=== PATIENT | male | born 1995 | race Caucasian/White ===

== ENCOUNTER 2016-08-01 17:45 | Emergency (ER) | payer OTHER ==
[2016-08-01] MEDS ORDERED: Azithromycin 100 MG/5 ML Susp 15 ML Bottle PO ONE (19:13)
--- NOTE | 2016-08-01 19:15 | EDM.PDOC ---
ED HPI GENERAL MEDICAL PROBLEM - General Chief Complaint: Genitourinary Problem Stated Complaint: BURING WHEN URINATE Time Seen by Provider: 08/01/16 17:45 Source of Information: Reports: Patient History Limitations: Reports: No limitations - History of Present Illness INITIAL COMMENTS - FREE TEXT/NARRATIVE: History of present illness: [20-year-old male comes in complaining of burning on urination states he thinks he is UTI. Patient indicates he has a UTI before he also acknowledges he has had an STI before and this feels more like the infection from his bladder and not an STI] Review of systems: As per history of present illness and below otherwise all systems reviewed and negative. Past medical history: As per history of present illness and as reviewed below otherwise noncontributory. Surgical history: As per history of present illness and as reviewed below otherwise noncontributory. Social history: No reported history of drug or alcohol abuse. Family history: As per history of present illness and as reviewed below otherwise noncontributory. Physical exam: HEENT: Atraumatic, normocephalic, pupils reactive, negative for conjunctival pallor or scleral icterus, mucous membranes moist, throat clear, neck supple, nontender, trachea midline. Lungs: Clear to auscultation, breath sounds equal bilaterally, chest nontender. Heart: S1S2, regular, negative for clicks, rubs, or JVD. Abdomen: Soft, nondistended, nontender. Negative for masses or hepatosplenomegaly. Negative for costovertebral tenderness. Pelvis: Stable nontender. Genitourinary: Deferred. Rectal: Deferred. Extremities: Atraumatic, negative for cords or calf pain. Neurovascular unremarkable. Neuro: Awake, alert, oriented. Cranial nerves II through XII unremarkable. Cerebellum unremarkable. Motor and sensory unremarkable throughout. Exam nonfocal. Global assessment is benign save for the subjective complaint as noted in history of present illness Diagnostics: [UA] Therapeutics: [] Impression: [Burning urination] Plan: 2 g of azithromycin here for broad coverage] Definitive disposition and diagnosis as appropriate pending reevaluation and review of above. - Related Data Allergies Allergy/AdvReac Type Severity Reaction Status Date / Time coconut Allergy Swelling Uncoded 08/01/16 17:51 Home Meds: Home Meds . [No Known Home Meds] 08/01/16 [History] Past Medical History HEENT History: Reports: None Cardiovascular History: Reports: None Respiratory History: Reports: None Gastrointestinal History: Reports: None Genitourinary History: Reports: None Musculoskeletal History: Reports: None Neurological History: Reports: Migraines Psychiatric History: Reports: Anxiety Endocrine/Metabolic History: Reports: None Hematologic History: Reports: None Immunologic History: Reports: None Oncologic (Cancer) History: Reports: None Dermatologic History: Reports: None - Infectious Disease History Infectious Disease History: Reports: None - Past Surgical History Head Surgeries/Procedures: Reports: None HEENT Surgical History: Reports: None Cardiovascular Surgical History: Reports: None Respiratory Surgical History: Reports: None GI Surgical History: Reports: None Male Surgical History: Reports: None Endocrine Surgical History: Reports: None Musculoskeletal Surgical History: Reports: None Dermatological Surgical History: Reports: None Social & Family History - Family History Family Medical History: Noncontributory - Tobacco Use Smoking Status *Q: Current Some Day Smoker Years of Tobacco use: 4 Packs/Tins Daily: 0.2 Second Hand Smoke Exposure: No - Caffeine Use Caffeine Use: Reports: None - Recreational Drug Use Recreational Drug Use: Yes Drug Use in Last 12 Months: Yes Recreational Drug Type: Reports: Marijuana/Hashish Recreational Drug Use Frequency: Daily ED ROS GENERAL - Review of Systems Review Of Systems: See Below (See history of present illness) ED EXAM, GENERAL - Physical Exam Exam: See Below (See history of present illness) Course - Vital Signs Last Recorded V/S: Last Vital Signs Temp 36.6 C 08/01/16 17:48 Pulse 49 L 08/01/16 17:48 Resp 16 08/01/16 17:48 BP 133/61 08/01/16 17:48 Pulse Ox 99 08/01/16 17:48 - Orders/Labs/Meds Orders: Active Orders 24 hr Category Date Time Status CHLAMYDIA TRACHOMATIS/GC AMPLF Stat Lab 08/01/16 17:51 Received Labs: Laboratory Tests 08/01/16 Range/Units 17:54 Urine Color YELLOW Urine Appearance CLEAR Urine pH 6.0 (5.0-8.0) Ur Specific [place] <= 1.005 (1.001-1.035) Urine Protein NEGATIVE (NEGATIVE) mg/dL Urine Glucose (UA) NEGATIVE (NEGATIVE) mg/dL Urine Ketones NEGATIVE (NEGATIVE) mg/dL Urine Occult Blood NEGATIVE (NEGATIVE) Urine Nitrite NEGATIVE (NEGATIVE) Urine Bilirubin NEGATIVE (NEGATIVE) Urine Urobilinogen 0.2 (<2.0) EU/dL Ur Leukocyte Esterase NEGATIVE (NEGATIVE) Urine RBC 0-1 (0-2/HPF) Urine WBC 0-1 (0-5/HPF) Ur Epithelial Cells RARE (NONE-FEW) Departure - Departure Time of Disposition: 19:14 Disposition: Home, Self-Care 01 Condition: good Clinical Impression: Burning with urination Forms: ED Department Discharge Additional Instructions: The following information is given to patients seen in the emergency department who are being discharged to home. This information is to outline your options for follow-up care. We provide all patients seen in our emergency department with a follow-up referral. The need for follow-up, as well as the timing and circumstances, are variable depending upon the specifics of your emergency department visit. If you don't have a primary care physician on staff, we will provide you with a referral. We always advise you to contact your personal physician following an emergency department visit to inform them of the circumstance of the visit and for follow-up with them and/or the need for any referrals to a consulting specialist. The emergency department will also refer you to a specialist when appropriate. This referral assures that you have the opportunity for follow-up care with a specialist. All of these measure are taken in an effort to provide you with optimal care, which includes your follow-up. Under all circumstances we always encourage you to contact your private physician who remains a resource for coordinating your care. When calling for follow-up care, please make the office aware that this follow-up is from your recent emergency room visit. If for any reason you are refused follow-up, please contact the [facility] Emergency Department at and asked to speak to the emergency department charge nurse. Followup with PCP in one to 2 day Return to ED as needed as discussed - My Orders Last 24 Hours: My Active Orders 08/01/16 17:51 CHLAMYDIA TRACHOMATIS/GC AMPLF Stat - Assessment/Plan Last 24 Hours: My Active Orders 08/01/16 17:51 CHLAMYDIA TRACHOMATIS/GC AMPLF Stat
[2016-08-01] MEDS ORDERED: Azithromycin 250 MG Tab PO STA (19:20)
[2016-08-01 20:30] VITALS: BP 135/65
== END 2016-08-01 19:31 | disposition home or self-care (01) ==
LOC: MW.ED 17:45
DX: R30.0 Dysuria (principal); F41.9 Anxiety disorder, unspecified; F17.210 Nicotine dependence, cigarettes, uncomplicated; Z91.018 Allergy to other foods
CPT/HCPCS: 81001; 87491; 87591; 99283; A9270

== ENCOUNTER 2016-08-01 22:15 | Emergency (ER) | payer OTHER, SELFPAY ==
[2016-08-01] MEDS ORDERED: Sodium Chloride 0.9% 1,000 ML IV ONE (22:33)
[2016-08-01] MEDS ORDERED: Ondansetron 4 MG/2 ML SDV IVPUSH ONE (22:33)
--- NOTE | 2016-08-01 22:48 | EDM.PDOC ---
ED HPI GI/ABDOMINAL - General Chief Complaint: Gastrointestinal Problem Stated Complaint: NAUSEA Time Seen by Provider: 08/01/16 22:23 Source of Information: Reports: Patient History Limitations: Reports: No limitations - History of Present Illness INITIAL COMMENTS - FREE TEXT/NARRATIVE: History of present illness: [20-year-old male returns to the ED secondary to 7 bouts of emesis. Patient now indicates that in fact he's had diarrhea for several days as well as nausea vomiting and that he had told registration is when he came in. I reminded patient that I had seen him myself and in fact all he had discussed was his burning on urination, his negative UA and concerned that it could be an STI and treatment the he agreed to take. Patient indicated that he understood that these were 2 separate issues but that he also comes thinking that he had some other illness to 2 this several days of nausea vomiting diarrhea the he insists that he has.] Review of systems: As per history of present illness and below otherwise all systems reviewed and negative. Past medical history: As per history of present illness and as reviewed below otherwise noncontributory. Surgical history: As per history of present illness and as reviewed below otherwise noncontributory. Social history: No reported history of drug or alcohol abuse. Family history: As per history of present illness and as reviewed below otherwise noncontributory. Physical exam: HEENT: Atraumatic, normocephalic, pupils reactive, negative for conjunctival pallor or scleral icterus, mucous membranes moist, throat clear, neck supple, nontender, trachea midline. Lungs: Clear to auscultation, breath sounds equal bilaterally, chest nontender. Heart: S1S2, regular, negative for clicks, rubs, or JVD. Abdomen: Soft, nondistended, nontender. Negative for masses or hepatosplenomegaly. Negative for costovertebral tenderness. Pelvis: Stable nontender. Genitourinary: Deferred. Rectal: Deferred. Extremities: Atraumatic, negative for cords or calf pain. Neurovascular unremarkable. Neuro: Awake, alert, oriented. Cranial nerves II through XII unremarkable. Cerebellum unremarkable. Motor and sensory unremarkable throughout. Exam nonfocal. Patient indicates is abdomen is only sore from the continuous vomiting. Patient without any nausea vomiting or diarrhea apparent during ER stay of one and a half hours. Patient indicates that he feels significantly better like "night and day". Patient instructed to have clear liquids for minimal for one day but 3 would be optimum, and slowly advanced as tolerated the insertion the gastric acid observing foods like similar to the BRAT diet Diagnostics: [] Therapeutics: [IV fluid, Zofran, Rocephin IV push] Impression: [Viral gastroenteritis] Plan: [Zofran followup with primary care] Definitive disposition and diagnosis as appropriate pending reevaluation and review of above. - Related Data Allergies/ADRs: Allergies Allergy/AdvReac Type Severity Reaction Status Date / Time coconut Allergy Swelling Uncoded 08/01/16 17:51 Home Meds: Home Meds . [No Known Home Meds] 08/01/16 [History] Past Medical History - Past Health History Medical/Surgical History: Denies Medical/Surgical History HEENT History: Reports: None Cardiovascular History: Reports: None Respiratory History: Reports: None Gastrointestinal History: Reports: None Genitourinary History: Reports: None Musculoskeletal History: Reports: None Neurological History: Reports: Migraines Psychiatric History: Reports: Anxiety Endocrine/Metabolic History: Reports: None Hematologic History: Reports: None Immunologic History: Reports: None Oncologic (Cancer) History: Reports: None Dermatologic History: Reports: None - Infectious Disease History Infectious Disease History: Reports: None - Past Surgical History Head Surgeries/Procedures: Reports: None HEENT Surgical History: Reports: None Cardiovascular Surgical History: Reports: None Respiratory Surgical History: Reports: None GI Surgical History: Reports: None Male Surgical History: Reports: None Endocrine Surgical History: Reports: None Musculoskeletal Surgical History: Reports: None Dermatological Surgical History: Reports: None Social & Family History - Family History Family Medical History: Noncontributory - Tobacco Use Smoking Status *Q: Never Smoker Years of Tobacco use: 4 Packs/Tins Daily: 0.2 Second Hand Smoke Exposure: No - Caffeine Use Caffeine Use: Reports: None - Recreational Drug Use Recreational Drug Use: Yes Drug Use in Last 12 Months: Yes Recreational Drug Type: Reports: Marijuana/Hashish Recreational Drug Use Frequency: Daily ED ROS GENERAL - Review of Systems Review Of Systems: See Below (History of present illness) ED EXAM, GI/ABD - Physical Exam Exam: See Below (History of present illness) Course - Vital Signs Last Recorded V/S: Last Vital Signs Temp 36.5 C 08/01/16 23:09 Pulse 55 L 08/01/16 23:09 Resp 18 08/01/16 23:09 BP 119/56 L 08/01/16 23:09 Pulse Ox 98 08/01/16 23:09 - Orders/Labs/Meds Orders: Active Orders 24 hr Category Date Time Status cefTRIAXone [Rocephin] Med 08/01/16 23:45 Ordered 250 mg IVPUSH Q24H Medication Orders Ceftriaxone Sodium (Rocephin) 250 mg IVPUSH Q24H ROLANDO Labs: Laboratory Tests 08/01/16 08/01/16 Range/Units 22:50 22:50 WBC 11.06 H (4.0-11.0) K/uL RBC 4.85 (4.50-5.90) M/uL Hgb 14.9 (13.0-17.0) g/dL Hct 44.7 (38.0-50.0) % MCV 92.2 (80.0-98.0) fL MCH 30.7 (27.0-32.0) pg MCHC 33.3 (31.0-37.0) g/dL RDW Std Deviation 43.0 (28.0-62.0) fl RDW Coeff of Michael 13 (11.0-15.0) % Plt Count 188 (150-400) K/uL MPV 11.60 (7.40-12.00) fL Neut % (Auto) 71.5 (48.0-80.0) % Lymph % (Auto) 18.4 (16.0-40.0) % [place] % (Auto) 8.8 (0.0-15.0) % Eos % (Auto) 1.1 (0.0-7.0) % Baso % (Auto) 0.2 (0.0-1.5) % Neut # (Auto) 7.9 H (1.4-5.7) K/uL Lymph # (Auto) 2.0 (0.6-2.4) K/uL [place] # (Auto) 1.0 H (0.0-0.8) K/uL Eos # (Auto) 0.1 (0.0-0.7) K/uL Baso # (Auto) 0.0 (0.0-0.1) K/uL Nucleated RBC % 0.0 /100WBC Nucleated RBCs # 0 K/uL Sodium 140 (136-146) mmol/L Potassium 3.6 (3.5-5.1) mmol/L Chloride 106 (98-110) mmol/L Carbon Dioxide 22 (21-31) mmol/L BUN 13 (6.0-23.0) mg/dL Creatinine 1.0 (0.6-1.5) mg/dL Est Cr Clr Drug Dosing 116.69 mL/min Estimated GFR (MDRD) > 60.0 ml/min Glucose 100 (60-110) mg/dL Calcium 10.2 (8.8-10.8) mg/dL Total Bilirubin 1.3 (0.1-1.5) mg/dL AST 26 (5-40) IU/L ALT 25 (8-54) IU/L Alkaline Phosphatase 73 (40-150) Total Protein 7.8 (6.0-8.0) g/dL Albumin 4.9 (3.5-5.0) g/dL Globulin 2.9 (2.0-3.5) g/dL Albumin/Globulin Ratio 1.7 (1.3-2.8) Meds: Medications Generic Name Dose Route Start Last Admin Trade Name Freq PRN Reason Stop Dose Admin Ceftriaxone Sodium 250 mg 08/01/16 23:45 Rocephin IVPUSH Q24H ROLANDO Discontinued Medications Generic Name Dose Route Start Last Admin Trade Name Freq PRN Reason Stop Dose Admin Sodium Chloride 1,000 mls @ 999 mls/hr 08/01/16 22:33 08/01/16 23:04 Normal Saline IV 08/01/16 23:33 999 mls/hr STAT ONE Administration Ondansetron HCl 8 mg 08/01/16 22:33 08/01/16 23:04 Zofran IVPUSH 08/01/16 22:34 8 mg ONETIME ONE Administration Departure - Departure Time of Disposition: 23:42 Disposition: Home, Self-Care 01 Condition: good Clinical Impression: Gastroenteritis Instructions: Dehydration, Adult, [id number], Viral Gastroenteritis, Adult, [id number], Nausea and Vomiting, Adult, Nyiz-ca-Cpji, Diarrhea, Adult, Easy-to -Read, Food Poisoning, [id number] Forms: ED Department Discharge Additional Instructions: The following information is given to patients seen in the emergency department who are being discharged to home. This information is to outline your options for follow-up care. We provide all patients seen in our emergency department with a follow-up referral. The need for follow-up, as well as the timing and circumstances, are variable depending upon the specifics of your emergency department visit. If you don't have a primary care physician on staff, we will provide you with a referral. We always advise you to contact your personal physician following an emergency department visit to inform them of the circumstance of the visit and for follow-up with them and/or the need for any referrals to a consulting specialist. The emergency department will also refer you to a specialist when appropriate. This referral assures that you have the opportunity for follow-up care with a specialist. All of these measure are taken in an effort to provide you with optimal care, which includes your follow-up. Under all circumstances we always encourage you to contact your private physician who remains a resource for coordinating your care. When calling for follow-up care, please make the office aware that this follow-up is from your recent emergency room visit. If for any reason you are refused follow-up, please contact the [facility] Emergency Department at and asked to speak to the emergency department charge nurse. Take medication as draped Followup with PCP 1-2 days Follow diet as discussed Return to ED as needed as discussed - My Orders Last 24 Hours: My Active Orders 08/01/16 23:45 cefTRIAXone [Rocephin] 250 mg IVPUSH Q24H - Assessment/Plan Last 24 Hours: My Active Orders 08/01/16 23:45 cefTRIAXone [Rocephin] 250 mg IVPUSH Q24H
[2016-08-01 23:22] LABS: CHLORIDE,CL 106 mmol/L (98-110); SODIUM,NA 140 mmol/L (136-146)
[2016-08-01] MEDS ORDERED: cefTRIAXone 1,000 MG VIAL IVPUSH SCH (23:45)
[2016-08-02] MEDS ORDERED: Sodium Chloride 0.9% 1,000 ML IV ONE ×2 (00:02→00:34)
[2016-08-02] MEDS ORDERED: Prochlorperazine 10 MG/2 ML SDV IVPUSH ONE (00:02)
[2016-08-02] MEDS ORDERED: Morphine 10 MG/ML Syringe IV ONE (00:19)
[2016-08-02] MEDS ORDERED: Iopamidol 755 Mg/ML 100 ML Bottle IVPUSH STA (00:49)
[2016-08-02 01:48] VITALS: BP 123/62
--- NOTE | 2016-08-02 14:15 | CT ---
EXAM DATE: 08/01/16 PATIENT'S AGE: 20 Patient: YOLA XIONG Facility: [place], [place] Site . Site : 1995 Study: CT Abdomen/Pelvis [id number] 1:18:26 AM Ordering Physician: Doctor Santoro Final Report: HISTORY: Right lower quadrant pain and vomiting. TECHNIQUE: The abdomen and pelvis was scanned using helical technique at 3 mm intervals without IV contrast. Sagittal and coronal reconstructions were performed. FINDINGS: Lung bases: No infiltrate. Liver and gallbladder: The liver parenchyma is homogeneous. There is trace periportal edema, a nonspecific finding. No calcified gallstones. Spleen, pancreas and adrenal glands: Unremarkable. Kidneys and bladder: Symmetric nephrograms. No hydronephrosis. The bladder is within normal limits. Retroperitoneum and lymph nodes: Abdominal aorta is normal in caliber. No pathologic periaortic or pelvic sidewall adenopathy is seen. GI tract: Stomach is decompressed. There is some fluid seen in nondilated small bowel loops. No transition point is identified. A normal appendix is seen on axial images 100-108. There is no surrounding inflammatory change. There is liquid stool seen in the ascending and transverse colon. There is no free air in the abdomen. There is trace free fluid the pelvis. Pelvic organs: Prostate unremarkable. Osseous structures: Schmorl`s node superior endplate L3. IMPRESSION: 1. Trace periportal edema, a nonspecific finding. 2. Normal appendix. 3. There is some fluid seen in nondilated small bowel loops with liquid stool in the ascending and transverse colon suggesting enteritis. 4. Trace free fluid in the pelvis. Dictated by Neva Thompson MD @ 08/02/2016 1:31:05 AM Dictated by: Neva Thompson MD @ 08/02/2016 01:32:04 (Electronic Signature) Report Signed by Proxy. [facility]ITALMichael
== END 2016-08-02 01:55 | disposition home or self-care (01) ==
LOC: MW.ED 22:15
DX: A08.4 Viral intestinal infection, unspecified (principal); R11.2 Nausea with vomiting, unspecified; F41.9 Anxiety disorder, unspecified; R30.0 Dysuria; F17.210 Nicotine dependence, cigarettes, uncomplicated; Z91.018 Allergy to other foods
CPT/HCPCS: 36415; 74177; 80053; 81001; 85025; 87491; 87591; 96361; 96374; 96375; 99283; 99284; A9270; J0780; J2270; J2405; J7040; Q9967

== ENCOUNTER → 2016-08-03 | Outpatient (CLI) | payer OTHER, SELFPAY | LOC: MW.CHRC 14:42 | PROVIDERS: ATTEND Family Medicine | DX: R19.7 Diarrhea, unspecified (principal); R30.0 Dysuria | CPT/HCPCS: 81001 ==

== ENCOUNTER → 2016-08-04 | Outpatient (CLI) | payer OTHER, SELFPAY | LOC: MW.CHRC 10:05 | PROVIDERS: ATTEND Family Medicine | DX: R19.7 Diarrhea, unspecified (principal) | CPT/HCPCS: 87046; 87324; 87899 ==

== ENCOUNTER 2017-02-06 15:44 | Emergency (ER) | payer OTHER, SELFPAY ==
[2017-02-06 16:11] VITALS: BP 130/63
[2017-02-06] MEDS ORDERED: Ondansetron 4 MG/2 ML SDV IVPUSH ONE (16:26)
[2017-02-06] MEDS ORDERED: Ketorolac 30 MG/ML SDV IVPUSH ONE (16:29)
--- NOTE | 2017-02-06 16:30 | EDM.PDOC ---
ED HPI GENERAL MEDICAL PROBLEM - General Chief Complaint: Gastrointestinal Problem Stated Complaint: VOMITING Time Seen by Provider: 02/06/17 16:27 Source of Information: Reports: Patient History Limitations: Reports: No Limitations - History of Present Illness INITIAL COMMENTS - FREE TEXT/NARRATIVE: HISTORY AND PHYSICAL: History of present illness: [Patient comes to the emergency room complaining of nausea and vomiting since 5 AM this morning. He felt warm and feverish all day. He is unable to keep down any food or fluids due to his nausea. Feels that the nausea has slightly improved since onset this morning. Has no blood in his stools or emesis. No difficulty urinating or back pain. No abdominal pain. Generalized achiness throughout his entire body. Mild headache. He has taken medications for his symptoms but he has vomited them all up. No ill contacts that he is aware of. He felt well last night, and did not drink alcohol or use drugs. He does not smoke cigarettes. He has a mild cough and chest congestion as well as a runny nose for the past several days. No pain in his chest shortness of breath or difficulty breathing. He has not had any wheezing or abnormal sounds with breathing. He has no other complaints or concerns at this time.] Review of systems: As per history of present illness and below otherwise all systems reviewed and negative. Past medical history: As per history of present illness and as reviewed below otherwise noncontributory. Surgical history: As per history of present illness and as reviewed below otherwise noncontributory. Social history: No reported history of drug or alcohol abuse. Family history: As per history of present illness and as reviewed below otherwise noncontributory. Physical exam: Gen. well-developed well-nourished male in no acute distress. He appears nontoxic and is in no distress. HEENT: Atraumatic, normocephalic. Right TM is moderately erythematous and bulging. Left TM is unremarkable. Oral mucous members are pink and moist. No tonsillar swelling erythema or exudate. Neck supple. no lymphadenopathy. Lungs: Clear to auscultation, breath sounds equal bilaterally. No wheezing crackles or rales. Heart: S1S2, regular rate and rhythm. Abdomen: Bowel sounds are normoactive throughout. Abdomen is soft nondistended nontender. No masses guarding or rebound. Is mildly tender with palpation over his lower back but no specific flank tenderness. Pelvis: Stable nontender. Genitourinary: Deferred. Rectal: Deferred. Extremities: Atraumatic, negative for cords or calf pain. No cyanosis or edema. Neurovascular unremarkable. Neuro: Awake, alert, oriented. Motor and sensory unremarkable throughout. Exam nonfocal. Diagnostics: [CBC, CMP, UA, amylase, lipase] Therapeutics: [Normal saline 1 L, Zofran 4 mg IV, Toradol 30 mg IV] Impression: [Nausea and vomiting] Plan: [Patient's pain improves and nausea resolves following medications. White count is mildly elevated at 14,000. Discussed with him that his symptoms appear to be from a viral illness. Recommend avoiding dairy, push fluids and increase diet as tolerated. Tylenol or ibuprofen as needed for discomfort. He is in agreement with today's plan. All questions are answered and concerns are addressed.] Definitive disposition and diagnosis as appropriate pending reevaluation and review of above. - Related Data Allergies Allergy/AdvReac Type Severity Reaction Status Date / Time coconut Allergy Swelling Uncoded 02/06/17 16:10 Home Meds: Home Meds . [No Known Home Meds] 08/01/16 [History] Past Medical History - Past Health History Medical/Surgical History: Denies Medical/Surgical History HEENT History: Reports: None Cardiovascular History: Reports: None Respiratory History: Reports: None Gastrointestinal History: Reports: None Genitourinary History: Reports: None Musculoskeletal History: Reports: None Neurological History: Reports: Migraines Psychiatric History: Reports: Anxiety Endocrine/Metabolic History: Reports: None Hematologic History: Reports: None Immunologic History: Reports: None Oncologic (Cancer) History: Reports: None Dermatologic History: Reports: None - Infectious Disease History Infectious Disease History: Reports: Chicken Pox - Past Surgical History Head Surgeries/Procedures: Reports: None HEENT Surgical History: Reports: None Cardiovascular Surgical History: Reports: None Respiratory Surgical History: Reports: None GI Surgical History: Reports: None Male Surgical History: Reports: Other (See Below) Other Male Surgeries/Procedures: orchiectomy Endocrine Surgical History: Reports: None Musculoskeletal Surgical History: Reports: None Dermatological Surgical History: Reports: None Social & Family History - Family History Family Medical History: Noncontributory - Tobacco Use Smoking Status *Q: Never Smoker Years of Tobacco use: 4 Packs/Tins Daily: 0.2 Second Hand Smoke Exposure: No - Caffeine Use Caffeine Use: Reports: None - Recreational Drug Use Recreational Drug Use: Yes Drug Use in Last 12 Months: Yes Recreational Drug Type: Reports: Marijuana/Hashish Recreational Drug Use Frequency: Socially ED ROS GENERAL - Review of Systems Review Of Systems: ROS reveals no pertinent complaints other than HPI. ED EXAM, GI/ABD - Physical Exam Exam: See Below Course - Vital Signs Last Recorded V/S: Last Vital Signs Temp 99.0 F 02/06/17 16:09 Pulse 95 02/06/17 16:09 Resp 16 02/06/17 16:09 BP 130/63 02/06/17 16:09 Pulse Ox 100 02/06/17 16:09 - Orders/Labs/Meds Orders: Active Orders 24 hr Category Date Time Status UA W/MICROSCOPIC [URIN] Stat Lab 02/06/17 20:30 Results Labs: Laboratory Tests 02/06/17 02/06/17 02/06/17 Range/Units 16:33 16:33 20:30 WBC 14.22 H (4.0-11.0) K/uL RBC 5.18 (4.50-5.90) M/uL Hgb 15.7 (13.0-17.0) g/dL Hct 47.1 (38.0-50.0) % MCV 90.9 (80.0-98.0) fL MCH 30.3 (27.0-32.0) pg MCHC 33.3 (31.0-37.0) g/dL RDW Std Deviation 43.5 (28.0-62.0) fl RDW Coeff of Michael 13 (11.0-15.0) % Plt Count 169 (150-400) K/uL MPV 11.90 (7.40-12.00) fL Neut % (Auto) 87.9 H (48.0-80.0) % Lymph % (Auto) 2.5 L (16.0-40.0) % [place] % (Auto) 9.1 (0.0-15.0) % Eos % (Auto) 0.4 (0.0-7.0) % Baso % (Auto) 0.1 (0.0-1.5) % Neut # (Auto) 12.5 H (1.4-5.7) K/uL Lymph # (Auto) 0.4 L (0.6-2.4) K/uL [place] # (Auto) 1.3 H (0.0-0.8) K/uL Eos # (Auto) 0.1 (0.0-0.7) K/uL Baso # (Auto) 0.0 (0.0-0.1) K/uL Nucleated RBC % 0.0 /100WBC Nucleated RBCs # 0 K/uL Sodium 139 (136-146) mmol/L Potassium 4.2 (3.5-5.1) mmol/L Chloride 105 (98-110) mmol/L Carbon Dioxide 23 (21-31) mmol/L BUN 11 (6.0-23.0) mg/dL Creatinine 1.0 (0.6-1.5) mg/dL Est Cr Clr Drug Dosing 118.63 mL/min Estimated GFR (MDRD) > 60.0 ml/min Glucose 91 (60-110) mg/dL Calcium 9.9 (8.8-10.8) mg/dL Total Bilirubin 0.7 (0.1-1.5) mg/dL AST 28 (5-40) IU/L ALT 21 (8-54) IU/L Alkaline Phosphatase 88 (40-150) Total Protein 7.8 (6.0-8.0) g/dL Albumin 4.6 (3.5-5.0) g/dL Globulin 3.2 (2.0-3.5) g/dL Albumin/Globulin Ratio 1.4 (1.3-2.8) Amylase 55 (10-90) U/L Lipase 20 (7-80) U/L Urine Color YELLOW Urine Appearance CLEAR Urine pH 6.0 (5.0-8.0) Ur Specific [place] 1.025 (1.001-1.035) Urine Protein NEGATIVE (NEGATIVE) mg/dL Urine Glucose (UA) NEGATIVE (NEGATIVE) mg/dL Urine Ketones >=80 (NEGATIVE) mg/dL Urine Occult Blood NEGATIVE (NEGATIVE) Urine Nitrite NEGATIVE (NEGATIVE) Urine Bilirubin NEGATIVE (NEGATIVE) Urine Urobilinogen 0.2 (<2.0) EU/dL Ur Leukocyte Esterase NEGATIVE (NEGATIVE) Meds: Medications Discontinued Medications Generic Name Dose Route Start Last Admin Trade Name Freq PRN Reason Stop Dose Admin Sodium Chloride 1,000 mls @ 999 mls/hr 02/06/17 16:26 02/06/17 17:57 Normal Saline IV 02/06/17 17:26 999 mls/hr STAT ONE Administration Ketorolac Tromethamine 30 mg 02/06/17 16:29 02/06/17 17:05 Toradol IVPUSH 02/06/17 16:30 30 mg ONETIME ONE Administration Ondansetron HCl 4 mg 02/06/17 16:26 02/06/17 17:05 Zofran IVPUSH 02/06/17 16:27 4 mg ONETIME ONE Administration Departure - Departure Time of Disposition: 20:20 Disposition: Home, Self-Care 01 Condition: Good Clinical Impression: Vomiting Vomiting Qualifiers: Vomiting type: unspecified Vomiting Intractability: non-intractable Nausea presence: with nausea Qualified Code(s): R11.2 - Nausea with vomiting, unspecified - Discharge Information Referrals: Alex Ponce [Primary Care Provider] - Forms: ED Department Discharge Additional Instructions: The following information is given to patients seen in the emergency department who are being discharged to home. This information is to outline your options for follow-up care. We provide all patients seen in our emergency department with a follow-up referral. The need for follow-up, as well as the timing and circumstances, are variable depending upon the specifics of your emergency department visit. If you don't have a primary care physician on staff, we will provide you with a referral. We always advise you to contact your personal physician following an emergency department visit to inform them of the circumstance of the visit and for follow-up with them and/or the need for any referrals to a consulting specialist. The emergency department will also refer you to a specialist when appropriate. This referral assures that you have the opportunity for follow-up care with a specialist. All of these measure are taken in an effort to provide you with optimal care, which includes your follow-up. Under all circumstances we always encourage you to contact your private physician who remains a resource for coordinating your care. When calling for follow-up care, please make the office aware that this follow-up is from your recent emergency room visit. If for any reason you are refused follow-up, please contact the [facility] emergency department at and asked to speak to the emergency department charge nurse. [facility] [address] [place] [id number] Follow-up with your primary care provider at the clinic listed above in 2-3 days. Push fluids, get plenty of rest. Avoid dairy products until diarrhea free for 24 hrs., then gradually increase diet. Return to ER as needed as discussed. - My Orders Last 24 Hours: My Active Orders 02/06/17 20:30 UA W/MICROSCOPIC [URIN] Stat - Assessment/Plan Last 24 Hours: My Active Orders 02/06/17 20:30 UA W/MICROSCOPIC [URIN] Stat
[2017-02-06 17:05] LABS: CHLORIDE,CL 105 mmol/L (98-110); SODIUM,NA 139 mmol/L (136-146)
[2017-02-06] MEDS: Sodium Chloride 0.9% 1,000 ML IV ONE ×2 (17:05→17:57)
== END 2017-02-06 21:13 | disposition home or self-care (01) ==
LOC: MW.ED 15:44
DX: R11.2 Nausea with vomiting, unspecified (principal)
CPT/HCPCS: 36415; 80053; 81001; 82150; 83690; 85025; 87804; 96361; 96374; 96375; 99284; J1885; J2405; J7040; 99283

== ENCOUNTER 2018-09-24 15:12 | Emergency (ER) | payer OTHER ==
[2018-09-24 15:26] VITALS: BP 132/58
--- NOTE | 2018-09-24 15:37 | EDM.PDOC ---
ED HPI GENERAL MEDICAL PROBLEM - General Chief Complaint: ENT Problem Stated Complaint: TONSILS INFECTED Time Seen by Provider: 09/24/18 15:14 Source of Information: Reports: Patient History Limitations: Reports: No Limitations - History of Present Illness INITIAL COMMENTS - FREE TEXT/NARRATIVE: HISTORY AND PHYSICAL: History of present illness: Patient is a 23-year-old male presents to the ED today with concern of a sore throat 2-3 days. Patient states she started noticing some white spots on the left side of his tonsil and was concern for strep throat. Patient states he's had a mild headache along with his symptoms. Patient denies any health history or any other symptoms at this time. Patient denies fever, chills, chest pain, shortness of breath, or cough. Denies headache, neck stiff ness, change in vision, syncope, or near syncope. Denies nausea, vomiting, abdominal pain, diarrhea, constipation, or dysuria. Has not noted any blood in urine or stool. Patient has been eating and drinking appropriately. Review of systems: As per history of present illness and below otherwise all systems reviewed and negative. Past medical history: As per history of present illness and as reviewed below otherwise noncontributory. Surgical history: As per history of present illness and as reviewed below otherwise noncontributory. Social history: See social history for further information Family history: As per history of present illness and as reviewed below otherwise noncontributory. Physical exam: General: Patient is alert, oriented, and in no acute distress. Patient sitting comfortably on exam table. HEENT: Atraumatic, normocephalic, pupils equal and reactive bilaterally, negative for conjunctival pallor or scleral icterus, mucous membranes moist, TMs normal bilaterally, throat is moderately erythematous there is 1-2 white plaque on the left side of the tonsil, neck supple, nontender, trachea midline. No drooling or trismus noted. No meningeal signs. No hot potato voice noted. Lungs: Clear to auscultation, breath sounds equal bilaterally, chest nontender. Heart: S1S2, regular rate and rhythm without overt murmur Abdomen: Soft, nondistended, nontender. Negative for masses or hepatosplenomegaly. Negative for costovertebral tenderness. Pelvis: Stable nontender. Genitourinary: Deferred. Rectal: Deferred. Skin: Intact, warm, dry. No lesions or rashes noted. Extremities: Atraumatic, negative for cords or calf pain. Neurovascular unremarkable. Neuro: Awake, alert, oriented. Cranial nerves II through XII unremarkable. Cerebellum unremarkable. Motor and sensory unremarkable throughout. Exam nonfocal. Notes: Discussed the importance for follow with the primary care provider. Voices understanding and is agreeable to plan of care. Denies any further questions or concerns at this time. Diagnostics: Strep Therapeutics: None Prescription: None Impression: Pharyngitis Plan: 1. You can alternate ibuprofen and Tylenol as directed for pain and discomfort. 2. Follow-up with a primary care provider as discussed. Return to the ED as needed and as discussed. Definitive disposition and diagnosis as appropriate pending reevaluation and review of above. Throat Pain Score (Numeric/FACES): 6 - Related Data Allergies Allergy/AdvReac Type Severity Reaction Status Date / Time coconut Allergy Swelling Uncoded 09/24/18 15:21 Home Meds: Home Meds Amitriptyline [Elavil] 25 mg PO BEDTIME 09/24/18 [History] Meloxicam [Mobic] 15 mg PO BID 09/24/18 [History] Past Medical History - Past Health History Medical/Surgical History: Denies Medical/Surgical History HEENT History: Reports: None Cardiovascular History: Reports: None Respiratory History: Reports: None Gastrointestinal History: Reports: None Genitourinary History: Reports: None Musculoskeletal History: Reports: None Neurological History: Reports: Migraines Psychiatric History: Reports: Anxiety Endocrine/Metabolic History: Reports: None Hematologic History: Reports: None Immunologic History: Reports: None Oncologic (Cancer) History: Reports: None Dermatologic History: Reports: None - Infectious Disease History Infectious Disease History: Reports: None - Past Surgical History Head Surgeries/Procedures: Reports: None HEENT Surgical History: Reports: None Cardiovascular Surgical History: Reports: None Respiratory Surgical History: Reports: None GI Surgical History: Reports: None Male Surgical History: Reports: Other (See Below) Other Male Surgeries/Procedures: orchiectomy Endocrine Surgical History: Reports: None Musculoskeletal Surgical History: Reports: None Dermatological Surgical History: Reports: None Social & Family History - Family History Family Medical History: Noncontributory - Tobacco Use Smoking Status *Q: Never Smoker Second Hand Smoke Exposure: No - Caffeine Use Caffeine Use: Reports: Energy Drinks - Recreational Drug Use Recreational Drug Use: No ED ROS ENT - Review of Systems Review Of Systems: ROS reveals no pertinent complaints other than HPI. ED EXAM, ENT - Physical Exam Exam: See Below (See dictation) Course - Vital Signs Last Recorded V/S: Last Vital Signs Temp 36.2 C 09/24/18 15:23 Pulse 96 09/24/18 15:23 Resp 13 09/24/18 15:23 BP 132/58 L 09/24/18 15:23 Pulse Ox 100 09/24/18 15:23 - Orders/Labs/Meds Orders: Active Orders 24 hr Category Date Time Status CULTURE STREP A CONFIRMATION [RM] Stat Lab 09/24/18 15:25 Results STREP SCRN A RAPID W CULT CONF [RM] Stat Lab 09/24/18 15:25 Results Departure - Departure Time of Disposition: 16:02 Disposition: Home, Self-Care 01 Clinical Impression: Pharyngitis Qualifiers: Pharyngitis/tonsillitis etiology: unspecified etiology Qualified Code(s): J02.9 - Acute pharyngitis, unspecified - Discharge Information Referrals: PCP,None [Primary Care Provider] - Forms: ED Department Discharge Additional Instructions: The following information is given to patients seen in the emergency department who are being discharged to home. This information is to outline your options for follow-up care. We provide all patients seen in our emergency department with a follow-up referral. The need for follow-up, as well as the timing and circumstances, are variable depending upon the specifics of your emergency department visit. If you don't have a primary care physician on staff, we will provide you with a referral. We always advise you to contact your personal physician following an emergency department visit to inform them of the circumstance of the visit and for follow-up with them and/or the need for any referrals to a consulting specialist. The emergency department will also refer you to a specialist when appropriate. This referral assures that you have the opportunity for follow-up care with a specialist. All of these measure are taken in an effort to provide you with optimal care, which includes your follow-up. Under all circumstances we always encourage you to contact your private physician who remains a resource for coordinating your care. When calling for follow-up care, please make the office aware that this follow-up is from your recent emergency room visit. If for any reason you are refused follow-up, please contact the [facility] Emergency Department at and asked to speak to the emergency department charge nurse. [facility] [address] [place] [address] [id number] 1. Alternate ibuprofen and Tylenol as directed for pain and discomfort. 2. Follow-up with her primary care provider as discussed. Return to the ED as needed and as discussed. - My Orders Last 24 Hours: My Active Orders 09/24/18 15:25 CULTURE STREP A CONFIRMATION [RM] Stat STREP SCRN A RAPID W CULT CONF [RM] Stat - Assessment/Plan Last 24 Hours: My Active Orders 09/24/18 15:25 CULTURE STREP A CONFIRMATION [RM] Stat STREP SCRN A RAPID W CULT CONF [RM] Stat
== END 2018-09-24 16:07 | disposition home or self-care (01) ==
LOC: MW.ED 15:12
DX: J02.9 Acute pharyngitis, unspecified (principal); Z91.018 Allergy to other foods
CPT/HCPCS: 87081; 87880-QW; 99282